=== PATIENT | female | born 1975 | race Two or more races ===

== ENCOUNTER → 2024-07-19 | Outpatient (CLI) | payer OTHER, SELFPAY ==
--- NOTE | 2024-07-19 14:54 | XR_ITS ---
EXAMINATION: Cervical spine, 5 views Technique: Cervical spine AP, AP odontoid, lateral, bilateral obliques, 5 views Exam date and time: July 19, 2024 1504 hours INDICATIONS: Neck pain one month. FINDINGS: Satisfactory alignment cervical vertebral bodies Early degenerative disc disease C5-C6 Intact odontoid Mild bilateral neural foraminal stenosis C5-C6 and C6-C7 No cervical fracture IMPRESSION: Early degenerative disc disease C5-C6 Mild bilateral neural foraminal stenosis C5-C6, C6-C7
== END | disposition home or self-care (01) ==
PROVIDERS: PCP Family Medicine; Referring Provider Nurse Practitioner Family; Visit Provider Nurse Practitioner Family
DX: M50.322 Other cervical disc degeneration at C5-C6 level (principal); M48.02 Spinal stenosis, cervical region
CPT/HCPCS: 72050